=== PATIENT | female | born 1995 | race Caucasian/White ===

== ENCOUNTER 2023-07-22 11:56 | Emergency (ER) | payer MEDICAID ==
[~2023-07-22] VITALS: Ht 180.3 cm; Wt 113.4 kg
[2023-07-22 12:00] VITALS: BP_SYST 169; PULSE 104; RESP 18; TEMP 98.8; O2SAT 97
[2023-07-22] MEDS ORDERED: ACET325T53 PO (13:07)
[2023-07-22 13:30] VITALS: BP_SYST 155; PULSE 99; RESP 18; TEMP 98.6; O2SAT 97
== END 2023-07-22 13:25 | disposition home or self-care (01) ==
LOC: SED 11:56
DX: S63.501A Unspecified sprain of right wrist, initial encounter (principal); S50.11XA Contusion of right forearm, initial encounter; I10 Essential (primary) hypertension; Z79.899 Other long term (current) drug therapy; X58.XXXA Exposure to other specified factors, initial encounter; Y93.89 Activity, other specified; Y92.89 Other specified places as the place of occurrence of the external cause; Y99.8 Other external cause status
CPT/HCPCS: 99283